=== PATIENT | female | born 1995 | race African-American/Black ===

== ENCOUNTER 2025-04-05 20:57 | Emergency (ER) | payer OTHER ==
[~2025-04-05] VITALS: Ht 172.7 cm; Wt 90.7 kg
[2025-04-06] MEDS ORDERED: FAMOtidine 10 MG/ML (4ML VIAL) IV STA
[2025-04-06] MEDS ORDERED: ONDANSETRON HCL 2 MG/ML VIAL IV STA (00:01)
[2025-04-06] MEDS ORDERED: SODIUM CL 0.9% 25 ML IV.SOLN. IV STA (00:02)
[2025-04-06 01:59] LABS: BASO % 0.3 % (0.1-1.2); EOS # 0.00 (0.04-0.54); EOS % 0.0 % (0.7-7.0); LYMPH # 0.91 (1.18-3.74); LYMPH % 7.8 % (19.3-53.1); MEAN PLATELET VOLUME 9.80 fl (9.4-12.4); MONO # 0.38 (0.24-0.82); MONO % 3.3 % (4.7-12.5); NEUT # 10.27 (1.56-6.13); NEUT % 88.3 % (34.0-71.1); RED CELL DISTRIBUTION WIDTH 11.8 % (11.6-14.4)
[2025-04-06 02:26] LABS: BUN CREA RATIO 15.0 (7.0-25.0); CREATININE SERUM 0.59 mg/dL (0.55-1.02); GFR 119.68; GLUCOSE FASTING 123.0 mg/dL (65-100); OSMOLALITY SERUM 278.0 MOSM/KG (275-295)
[2025-04-06 03:26] LABS: URINE APPEARANCE Clear; URINE BILIRRUBIN Negative (NEGATIVE); URINE BLOOD Negative; URINE COLOR Yellow; URINE GLUCOSE Negative (NEGATIVE); URINE LEUKOCYTE Negative; URINE NITRATE Negative; URINE PROTEIN 30 (NEGATIVE); URINE UROBILINOGEN 0.2 E.U./dl
[2025-04-06 03:33] LABS: URINE BACTERIA 1417.1 uL (0.0-1933); URINE EPITHELIAL CELLS 57.6 uL (0.0-38.8); URINE RBC 5.8 uL (0.0-20.8); URINE WBC 22.9 uL (0.0-23.2)
[2025-04-06 03:39] LABS: COVID-19 AG NEGATIVE (NEGATIVE)
[2025-04-06 04:30] LABS: TYPE CELLS SQUAMOUS; URINE CAST 0.58 uL (0.0-1.40); URINE KETONE >=160 (NEGATIVE)
== END 2025-04-06 06:48 | disposition home or self-care (01) ==
LOC: ER 20:57
PROVIDERS: General Practice
DX: O21.0 Mild hyperemesis gravidarum (principal); Z3A.09 9 weeks gestation of pregnancy; Z20.822 Contact with and (suspected) exposure to COVID-19